=== PATIENT | male | born 1970 | race Caucasian/White ===

== ENCOUNTER 2017-03-11 10:26 | Day surgery (SDC) | payer OTHER ==
[~2017-03-11 10:26] MED LIST: Buffered Lidocaine 0.9% SYRIN* 5 ML/SYR SYRINGE INTRADERM ONE; Sodium Citrate/Citric Acid* 15 ML UDC PO ONE
[2017-03-11] MEDS ORDERED: Sodium Citrate/Citric Acid* 15 ML UDC ONE (10:37)
[2017-03-11] MEDS ORDERED: Buffered Lidocaine 0.9% SYRIN* 5 ML/SYR SYRINGE ONE (10:38)
[2017-03-11] MEDS ORDERED: Oxymetazoline 0.05% NASAL SPR* 15 ML BTL ONE (12:02)
[2017-03-11] MEDS ORDERED: Bacitracin OINTMENT* 1 TUBE ONE (12:02)
[2017-03-11] MEDS ORDERED: Lidocaine 4% TOPICAL* 50 ML TOP.SOLN ONE (12:02)
[2017-03-11] MEDS ORDERED: Lidocaine 1% MPF wEPI 200,000* 30 ML SDV ONE (12:02)
[2017-03-11] MEDS ORDERED: fentaNYL* 50 MCG/ML 2 ML VIAL (100 MCG VIAL) IV PRN (12:10)
[2017-03-11] MEDS ORDERED: Ondansetron INJ* 2 MG/ML VIAL IV PRN (12:10)
[2017-03-11] MEDS ORDERED: fentaNYL* 50 MCG/ML 2 ML VIAL (100 MCG VIAL) ONE (12:15)
[2017-03-11] MEDS ORDERED: Dexamethasone IV* 4 MG/ML 1 ML (4 MG) ONE (12:15)
[2017-03-11] MEDS ORDERED: Lidocaine 2% PF * 5 ML VIAL ONE (12:15)
[2017-03-11] MEDS ORDERED: Midazolam* 1 MG/ML 2 ML VIAL (2 MG) ONE (12:16)
[2017-03-11] MEDS ORDERED: HYDROcodone/ACETAMIN 5-325 MG* 1 TAB ONE (13:44)
[2017-03-11 14:31] VITALS: BP 116/64
--- NOTE | 2017-03-12 05:10 | OP ---
DATE OF OPERATION: 03/11/17 - SDS DATE OF : 70 SURGEON: Jaylon Chaves MD ANESTHESIOLOGIST: Guilherme Aguayo DO ANESTHESIA: General PRE-OP DIAGNOSIS: Chronic right maxillary sinusitis. POST-OP DIAGNOSIS: Chronic right maxillary sinusitis. OPERATIVE PROCEDURE: Endoscopic sinus surgery with right maxillary antrostomy and debridement under general laryngeal mask airway anesthesia. COMPLICATIONS: None. DISPOSITION: Good. SPECIMEN: Culture for routine C and S and anaerobic culture and right maxillary sinus contents. DESCRIPTION OF PROCEDURE: The patient was taken to the operating room, placed in a supine position on the operating table. General anesthesia was induced. He was maintained with laryngeal mask airway anesthesia. His nose was packed bilaterally with cottonoids impregnated with oxymetazoline and 4% lidocaine. He was then draped for the surgery. His pack was removed and medially it was obvious he had significant amount of inflammation in the right ostiomeatal unit and around the middle turbinate. He was injected with 1% lidocaine to 1:100, 000 epinephrine, and with this is in the medialization, gross pus started draining and I sent this for routine C and S and anaerobic culture. The ostium of the maxillary sinus was very inflamed, lots of thickened tissue. I took some biopsies. I opened up into the maxillary sinus and sucked out pus from the sinus. I tried to debride the ostium as much as possible. Again, lots of inflammation in this area. Stammberger Sinu-Foam was placed into the ostiomeatal unit. The patient tolerated the procedure well. No complications. Transferred to the recovery room in stable condition. [id number]/[facility] #: [id number] [facility]
== END 2017-03-11 14:28 | disposition home or self-care (01) ==
LOC: OR 10:26
PROVIDERS: ATTEND Otolaryngology
DX: J32.0 Chronic maxillary sinusitis (principal); K04.6 Periapical abscess with sinus; Z68.35 Body mass index [BMI] 35.0-35.9, adult; M54.5 Low back pain
CPT/HCPCS: 87070; 87073; 87076; 87077; 87186; 87205; 88304; A9270-GY; J1100; J2001; J2250; J3010

== ENCOUNTER 2017-09-23 10:57 | Day surgery (SDC) | payer OTHER ==
[~2017-09-23 10:57] MED LIST changes: -Sodium Citrate/Citric Acid* 15 ML UDC PO ONE
[2017-09-23] MEDS ORDERED: Midazolam* 1 MG/ML 2 ML VIAL (2 MG) ONE (12:23)
[2017-09-23] MEDS ORDERED: fentaNYL* 50 MCG/ML 2 ML VIAL (100 MCG VIAL) ONE ×2 (12:23→14:39)
[2017-09-23] MEDS ORDERED: Lidocain 1% EPI 1:100,000 * 30 ML MDV ONE (13:42)
[2017-09-23] MEDS ORDERED: Oxymetazoline 0.05% NASAL SPR* 15 ML BTL ONE (13:42)
[2017-09-23] MEDS ORDERED: Lidocaine 4% TOPICAL* 50 ML TOP.SOLN ONE (13:42)
[2017-09-23] MEDS ORDERED: Acetaminophen TAB* 325 MG PO PRN (13:58)
[2017-09-23] MEDS ORDERED: DiMENhydriNATE IV* 50 MG/ML VIAL IV PUSH PRN (13:58)
[2017-09-23] MEDS ORDERED: fentaNYL* 50 MCG/ML 2 ML VIAL (100 MCG VIAL) IV PRN (13:58)
[2017-09-23] MEDS ORDERED: Ondansetron ODT TAB* 4 MG PO PRN (13:58)
[2017-09-23] MEDS ORDERED: Naloxone* 0.4 MG/ML 1 ML VIAL IV PRN (13:58)
[2017-09-23] MEDS ORDERED: PROCHLORPERAZINE INJ 5 MG/ML 2 ML VIAL IV PRN (13:58)
[2017-09-23] MEDS ORDERED: Dexamethasone IV* 4 MG/ML 1 ML (4 MG) ONE (14:17)
[2017-09-23] MEDS ORDERED: Propofol* 10 MG/ML 20 ML BTL IV PUSH ONE (14:17)
[2017-09-23] MEDS ORDERED: Lidocaine 2% PF * 5 ML VIAL ONE (14:17)
[2017-09-23] MEDS ORDERED: Famotidine IV* 10 MG/ML 2 ML (20 mg) ONE (14:17)
[2017-09-23] MEDS ORDERED: Triamcinolone Acetonide* 40 MG/ML 1 ML VIAL ONE (15:11)
[2017-09-23 16:17] VITALS: BP 132/79
--- NOTE | 2017-09-24 12:47 | OP ---
DATE OF OPERATION: 09/23/17 - SDS DATE OF : 70 SURGEON: Jaylon Chaves MD ANESTHESIA: General laryngeal mask airway anesthesia. PRE-OP DIAGNOSIS: Right maxillary sinusitis. POST-OP DIAGNOSIS: Right maxillary and ethmoidal sinusitis. OPERATIVE PROCEDURE: Endoscopic sinus surgery with right maxillary antrostomy with debridement of polyp and anterior-posterior ethmoidectomy with image guidance under general laryngeal mask airway anesthesia. COMPLICATIONS: None. DISPOSITION: Good. SPECIMENS: Right maxillary and ethmoidal contents. DESCRIPTION OF PROCEDURE: The patient was taken to the operating room, placed in a supine position on the operating table. General anesthesia maintained with laryngeal mask airway anesthesia. His nose was packed with cottonoids impregnated with oxymetazoline and 4% lidocaine. He was then registered to the image guidance system. Using the endoscope, I examined his right nasal cavity and he had gross pus draining from his right ostiomeatal unit, which was sent for both anaerobic and aerobic cultures. I injected the middle turbinate lateral wall, medialized it and the whole ostiomeatal unit was filled with draining pus and inflamed mucosa. Using the registered system, I broke in through the thick scar tissue blocking the right maxillary sinus and debrided the maxillary ostium, widening it to make a wider antrostomy. I debrided inflamed tissue out of the anterior and posterior ethmoids and we did this using the image guidance system and the [employer] and the nasal debrider. At the end of the case, I took Stammberger Sinu-Foam with 1 mL of Kenalog and the rest water and placed it in the ostiomeatal unit. The patient tolerated the procedure well. No complications. Transferred to the recovery room in stable condition. [id number]/[facility] #: [id number] [facility]
== END 2017-09-23 16:29 | disposition home or self-care (01) ==
LOC: OR 10:57
PROVIDERS: ATTEND Otolaryngology
DX: J32.8 Other chronic sinusitis (principal)
CPT/HCPCS: 87070; 87073; 87076; 87077; 87186; 87205; 88305; A9270-GY; J1100; J2250; J2704; J3010; J3301